=== PATIENT | female | born 2000 | race Caucasian/White ===

== ENCOUNTER 2019-11-14 17:50 | Emergency (ER) | payer MEDICAID, OTHER ==
[2019-11-14 17:56] VITALS: BP 145/78
[2019-11-14] MEDS ORDERED: DEXAMETHASONE SOD PHOS INJ 10 MG/1 ML VIAL IM ONE (19:31)
--- NOTE | 2019-11-14 19:37 | ER Document Report ---
ED Skin Rash/Insect Bite/Abscs - General Chief Complaint: Sunburn Stated Complaint: SUNBURN Time Seen by Provider: 11/14/19 19:24 Primary Care Provider: GARLAND REGAN MD [Primary Care Provider] - Follow up as needed Mode of Arrival: Ambulatory Information source: Patient Notes: Patient is a 19-year-old female comes emergency room complaint of having a sunburn on her shoulders and back. Patient states that she went to the beach on Thursday only stayed out 2 hours and she did use sunscreen but she brought some family member sunscreen and she is now first-degree had an early second-degree weiner on her shoulders. She has been attempting to use everything [id number] to include aloe with lidocaine cool compresses aspirin ibuprofen anything she could read about and she attempted. She does not have any success so she is here for evaluation. TRAVEL OUTSIDE OF THE [place] IN LAST 30 DAYS: No - HPI Patient complains to provider of: Tender/swollen area Onset: Other - 2 days Onset/Duration: Gradual, Worse Quality of pain: Burning Severity: Severe Pain Level: 4 Skin Character: Bullous, Drainage, Erythema, Lesion, Tenderness Skin Temperature: Hot Quality of rash: Painful, Burning Identify cause: Yes Medication exposure: Other - Or exposure to sun Exacerbated by: Movement Relieved by: Denies Similar symptoms previously: No Recently seen / treated by doctor: No - Related Data Allergies/Adverse Reactions: No Known Allergies Allergy (Unverified 11/14/19 19:23) Past Medical History - General Information source: Patient - Social History Smoking Status: Never Smoker Chew tobacco use (# tins/day): No Frequency of alcohol use: None Drug Abuse: None Lives with: Family Family History: Reviewed & Not Pertinent Review of Systems - Review of Systems Constitutional: No symptoms reported EENT: No symptoms reported Cardiovascular: No symptoms reported Respiratory: No symptoms reported Gastrointestinal: No symptoms reported Genitourinary: No symptoms reported Female Genitourinary: No symptoms reported Musculoskeletal: No symptoms reported Skin: See HPI, Other - Sunburn Hematologic/Lymphatic: No symptoms reported Neurological/Psychological: No symptoms reported Physical Exam - Vital signs Vitals: Temp Pulse Resp BP Pulse Ox 98.6 F 100 20 145/78 H 98 11/14/19 17:55 11/14/19 17:55 11/14/19 17:55 11/14/19 17:55 11/14/19 17:55 Interpretation: Hypertensive - Notes Notes: PHYSICAL EXAMINATION: GENERAL: Patient is a well-nourished well-developed 19-year-old female who is in no apparent distress on physical exam today however patient is in obvious discomfort and pain. HEAD: Atraumatic, normocephalic. EYES: Pupils equal round and reactive to light, extraocular movements intact, conjunctiva are normal. LUNGS: Breath sounds clear to auscultation bilaterally and equal. No wheezes rales or rhonchi. HEART: Regular rate and rhythm without murmurs Female : deferred NEUROLOGICAL: Cranial nerves grossly intact. Normal speech, normal gait. Normal sensory, motor exams PSYCH: Normal mood, normal affect. SKIN: Examination patient's area of concern is her neck upper shoulders and back. Primarily the worst part patient has exposed was the anterior shoulders and slight posterior shoulders. She has bilateral areas of bullae clear-colored liquid filled. Multiple different stages and sizes. She also has some minor no small bumps throughout showing a sun overexposure type poisoning. There is no sign of infection at this time. Course - Re-evaluation Re-evalutation: 11/14/19 19:37 Have given patient a shot of Decadron here will place her on a steroid taper and have instructed her to attempt to use Aquaphor and the lidocaine cream. - Vital Signs Vital signs: Temp Pulse Resp BP Pulse Ox 98.6 F 100 20 145/78 H 98 11/14/19 19:24 11/14/19 17:55 11/14/19 17:55 11/14/19 17:55 11/14/19 17:55 Discharge - Discharge Clinical Impression: Sunburn, Sunburn of second degree, Sunburn of first degree Disposition: HOME, SELF-CARE Instructions: Weiner ([facility]), Oral Narcotic Medication ([facility]), Soap Cleansing ([facility]), Sunburn ([facility]) Additional Instructions: Highly recommend using Aquaphor [id number] applying generously to those areas you may also want to mix it with some the lidocaine cream I am going to write you for you can make a paste that you can apply the shoulders get some Telfa/nonstick dressings and then have someone wrap it with some cleaning or some type of loosefitting material. Take the medication as prescribed and stay out of the sun as much as possible. She is having concerns or problems return to ER for reevaluation. Prescriptions: Hydrocodone/Acetaminophen [Clymer 5-325 mg Tablet] 1 tab PO Q6 #10 tablet Lidocaine HCl/Collagen [Regenecare 2% Wound Gel] 4 ml TP DAILY #1 gel..ml. Forms: Elevated Blood Pressure, Return to Work Referrals: GARLAND REGAN MD [Primary Care Provider] - Follow up as needed
== END 2019-11-14 19:49 | disposition home or self-care (01) ==
LOC: ER 17:50
DX: L55.1 Sunburn of second degree (principal)
CPT/HCPCS: 99282; 96372; J1100